=== PATIENT | female | born 1930 | race Hispanic/Latino ===

== ENCOUNTER 2018-08-26 11:53 | Emergency (ER) | payer MEDICARE, OTHER ==
[~2018-08-26] VITALS: Ht 152.4 cm; Wt 65.8 kg
--- OUTSIDE RECORDS SUMMARY | 2018-08-26 11:56 | XMS REPORT | Summary of Care ---
Author Organization Unknown Address Unknown Phone Unavailable Encounter HQ Adrianna_janusz(FLAKITO) [id number] Date(s): 08/12/14 - 08/12/[address] [facility] [address] [place] Discharge Disposition: Home Physician Attending: Keith Gómez MD Physician_Referring: Keith Gómez MD Reason for Visit UNK Vital Signs 1 2 3 Most recent to oldest [Reference Range]: 149.86 cm (08/09/14 9:19 AM) Height 98.0 DegF (08/09/14 9:22 AM) Temperature Oral [96.4-99.1 DegF] 131 mmHg (08/12/14 10:00 AM) 134 mmHg (08/12/14 9:45 AM) 128 mmHg (08/12/14 9:31 AM) Systolic Blood Pressure [90-140 mmHg] 57 mmHg *LOW* (08/12/14 10:00 AM) 60 mmHg (08/12/14 9:45 AM) 61 mmHg (08/12/14 9:31 AM) Diastolic Blood Pressure [60-90 mmHg] 15 BRMIN (08/12/14 10:00 AM) 19 BRMIN (08/12/14 9:45 AM) 15 BRMIN (08/12/14 9:31 AM) Respiratory Rate [14-20 BRMIN] 74 bpm (08/09/14 9:22 AM) Peripheral Pulse Rate [60-100 bpm] 76.818 kg (08/09/14 9:19 AM) Weight 34.21 m2 (08/09/14 9:19 AM) Body Mass Index Problem List Condition Effective Dates Status Health Status Informant Anxiety(Confirmed) Active Back pain(Confirmed) Resolved Back pain(Confirmed) Active Bronchitis(Confirmed Resolved ) Carpal tunnel Active syndrome(Confirmed) Chest Active pain(Confirmed) Depression(Confirmed Resolved ) Diabetes mellitus Resolved type 2(Confirmed) Hypertension(Confirm Resolved ed) Hypertension(Confirm Active ed) Allergies, Adverse Reactions, Alerts Substance Reaction Severity Status penicillins Active Medications acetaminophen 1,000 mg, Route: IVPB, Drug form: INJ, ONCE, Dosing Weight 76.818, kg, PRN Pain Score 1-3, Start date: 08/12/14 9:30:00, Duration: 1 doses or times, Stop date: Limited # of times Start Date: 08/12/14 Stop Date: 08/12/14 Status: Discontinued fentaNYL 25 microgram, Route: IVP, Q5Min, Dosing Weight 76.818, kg, PRN Pain Score 4-6, S tart date: 08/12/14 9:30:00, Duration: 4 doses or times, Stop date: Limited # of times Start Date: 08/12/14 Stop Date: 08/12/14 Status: Discontinued flumazenil 0.2 mg, Route: IVP, PRN, Dosing Weight 76.818, kg, PRN Benzodiazepine Reversal, Initial dose, Start date: 08/12/14 9:30:00, Duration: 30 day, Stop date: 4 8:29:00 Start Date: 08/12/14 Stop Date: 08/12/14 Status: Discontinued hydrochlorothiazide-losartan 12.5 mg-100 mg oral tablet 1 tab, PO, Daily, # 90 tab, 0 Refill(s) Start Date: 08/09/14 Status: Ordered hydromorphone 0.5 mg, Route: IVP, Q5Min, Dosing Weight 76.818, kg, PRN Pain Score 7-10, Start date: 08/12/14 9:30:00, Duration: 4 doses or times, Stop date: Limited # of time s Start Date: 08/12/14 Stop Date: 08/12/14 Status: Discontinued Lactated Ringers Injection IV 1000 mL 1,000 mL, Rate: 25 ml/hr, Infuse over: 40 hr, Route: IV, Dosing Weight 76.818 kg , Total Volume: 1,000, Start date: 08/12/14 7:15:00, Duration: 30 day, Stop date : 09/11/14 7:14:00 Start Date: 08/12/14 Stop Date: 08/12/14 Status: Discontinued meperidine 12.5 mg, Route: IVP, Q30Min, Dosing Weight 76.818, kg, PRN Other -See Comment, F or shivering, Start date: 08/12/14 9:30:00, Duration: 2 doses or times, Stop soni e: Limited # of times Start Date: 08/12/14 Stop Date: 08/12/14 Status: Discontinued naloxone 0.04 mg, Route: IVP, Q2MIN, Dosing Weight 76.818, kg, PRN Narcotic Reversal, Sta rt date: 08/12/14 9:30:00, Duration: 8 doses or times, Stop date: Limited # of t imes Start Date: 08/12/14 Stop Date: 08/12/14 Status: Discontinued [place] 5/325 oral tablet 1 tab, Route: PO, Drug Form: TAB, Dosing Weight 76.818, kg, Q4H, PRN Pain, Start date: 08/12/14 9:30:00, Duration: 30 day, Stop date: 09/11/14 9:29:00 Start Date: 08/12/14 Stop Date: 08/12/14 Status: Discontinued ondansetron 4 mg, Route: IVP, ONCE, Dosing Weight 76.818, kg, PRN Nausea & Vomiting, Start date: 08/12/14 9:30:00 Start Date: 08/12/14 Stop Date: 08/12/14 Status: Discontinued ProAir HFA 90 mcg/inh inhalation aerosol with adapter 2 puff, INHALATION, Q4H, for wheezing, # 9 gm, 0 Refill(s) Start Date: 08/09/14 Status: Ordered Proventil HFA 90 mcg/inh inhalation aerosol with adapter 1 puff, INHALATION, QID, for wheezing, # 25 gm, 0 Refill(s) Start Date: 08/09/14 Status: Ordered Results ELECTROLYTES Most recent to 1 oldest [Reference Range]: Sodium Lvl [135-145 138 mEq/L mEq/L] (08/09/14 10:00 AM) Potassium Lvl 3.9 mEq/L [3.5-5.1 mEq/L] (08/09/14 10:00 AM) Chloride Lvl [95-109 105 mEq/L mEq/L] (08/09/14 10:00 AM) CO2 [24-32 mEq/L] 28 mEq/L (08/09/14 10:00 AM) AGAP [10.0-20.0 8.9 mEq/L mEq/L] *LOW* (08/09/14 10:00 AM) Medications Administered During Your Visit No data available for this section Immunizations No data available for this section Procedures Procedure Type Body Site Date of Procedure Related Diagnosis Carpal tunnel 01/2014 decompression Social History Social History Type Response Alcohol Use: Never Smoking Status Never smoker, Type: Cigarettes, Exposure to Tobacco Smoke None, Cigarette Smoking Last 365 Days No, Reg Smoking Cessation Counseling No
--- OUTSIDE RECORDS SUMMARY | 2018-08-26 11:56 | XMS REPORT | Summary of Care ---
Author Author [facility] [place] Organization [facility] [place] Address Unknown Phone Unavailable Encounter HQ Larar_janusz(FIN) [id number] Date(s): 03/08/18 - 03/08/18 [facility] [place] [address] [place] [phone] Discharge Disposition: Home or Self Care Attending Physician: Rakesh Celestin DO Vital Signs No data available for this section Problem List Condition Effective Dates Status Health Status Informant Anxiety(Confirmed) Active Back pain(Confirmed) Resolved Back pain(Confirmed) Active Bronchitis(Confirmed Resolved ) Carpal tunnel Active syndrome(Confirmed) Chest Active pain(Confirmed) Depression(Confirmed Resolved ) Diabetes mellitus Resolved type 2(Confirmed) Hypertension(Confirm Resolved ed) Hypertension(Confirm Active ed) Allergies, Adverse Reactions, Alerts Substance Reaction Severity Status penicillins Active Medications No data available for this section Results No data available for this section Immunizations No data available for this section Procedures Procedure Date Related Diagnosis Body Site Status Carpal tunnel decompression 01/2014 Completed Cataract extraction1 Completed Colonoscopy Completed Hemorrhoidectomy Completed Hysterectomy Completed Operation Completed 1OU Social History Social History Type Response Alcohol Never Smoking Status Never smoker; Type: Cigarettes; Exposure to Tobacco Smoke None; Cigarette Smoking Last 365 Days No; Reg Smoking Cessation Counseling No entered on: 08/09/14 Assessment and Plan No data available for this section
--- OUTSIDE RECORDS SUMMARY | 2018-08-26 11:56 | XMS REPORT | Summary of Care ---
Author Organization Unknown Address Unknown Phone Unavailable Encounter Dates Location Diagnoses Discharge Providers Disposition 01/28/2014 [facility] 01/28/2014 [id number] [place], [place] [address] , [facility] Reason for Visit ICD 354.0 727.05 / CPT 45751 51309 . Vital Signs 1 2 3 Most recent to oldest [Reference Range]: 149.86 cm (01/26/2014 10:42:00 [facility]) Height 97.6 DegF (01/26/2014 10:26:00 [facility]) Temperature Oral [96.4-99.1 DegF] 114 mmHg (01/28/2014 09:15:00 [place]) 129 mmHg (01/28/2014 09:00:00 [facility]) 128 mmHg (01/28/2014 08:45:00 [place]) Systolic Blood Pressure [90-140 mmHg] 64 mmHg (01/28/2014 09:15:00 [place]) 45 mmHg *LOW* (01/28/2014 09:00:00 [place]) 60 mmHg (01/28/2014 08:45:00 [place]) Diastolic Blood Pressure [60-90 mmHg] 15 BRMIN (01/28/2014 09:15:00 [place]) 13 BRMIN *LOW* (01/28/2014 09:00:00 [place]) 16 BRMIN (01/28/2014 08:45:00 [place]) Respiratory Rate [14-20 BRMIN] 74 bpm (01/26/2014 10:26:00 [place]) Peripheral Pulse Rate [60-100 bpm] 71.364 kg (01/26/2014 10:42:00 [place]) Weight 31.78 m2 (01/26/2014 10:42:00 [place]) Body Mass Index Problem List Condition Effective Dates Status Health Status Informant Back pain(Confirmed) Resolved Bronchitis(Confirmed Resolved ) Depression(Confirmed Resolved ) Diabetes mellitus Resolved type 2(Confirmed) Hypertension(Confirm Resolved ed) Allergies, Adverse Reactions, Alerts Status Substance Reaction Severity Active penicillins Medications Medication Instructions Start Date Stop Date Status calcitonin NASAL, Daily, 0 Refill(s) 01/26/2014 Ordered Calcium 600 +D oral 1 tab, PO, Daily, 0 Refill(s) 01/26/2014 Ordered tablet fentaNYL 25 microgram, Route: IVP, Q5Min, 01/28/2014 01/28/2014 Discontinued Dosing Weight 71.364, kg, PRN Pain Score 4-6, Start date: 01/28/14 8:34:00, Duration: 4 doses or times, Stop date: Limited # of times Fish Oil 0 Refill(s) 01/26/2014 Ordered flumazenil 0.2 mg, Route: IVP, PRN, Dosing 01/28/2014 01/28/2014 Discontinued Weight 71.364, kg, PRN Benzodiazepine Reversal, Initial dose, Start date: 01/28/14 8:34:00, Duration: 30 day, Stop date: 02/27/14 8:33:00 hydromorphone 0.5 mg, Route: IVP, Q5Min, Dosing 01/28/2014 01/28/2014 Discontinued Weight 71.364, kg, PRN Pain Score 7-10, Start date: 01/28/14 8:34:00, Duration: 4 doses or times, Stop date: Limited # of times Hyzaar 12.5 mg=, PO, Daily, 0 Refill(s) 01/26/2014 Ordered Lactated Ringers 1,000 mL, Rate: 25 ml/hr, Infuse 01/28/2014 01/28/2014 Discontinued Injection IV 1000 mL over: 40 hr, Route: IV, Dosing Weight 71.364 kg, Total Volume: 1,000, Start date: 01/28/14 6:49:00, Duration: 30 day, Stop date: 02/27/14 6:48:00 lovastatin 40 mg 40 mg=1 tab, PO, Bedtime, # 30 tab, 01/26/2014 Ordered oral tablet 0 Refill(s) meperidine 12.5 mg, Route: IVP, Q30Min, Dosing 01/28/2014 01/28/2014 Discontinued Weight 71.364, kg, PRN Other -See Comment, For shivering, Start date: 01/28/14 8:34:00, Duration: 2 doses or times, Stop date: Limited # of times naloxone 0.04 mg, Route: IVP, Q2MIN, Dosing 01/28/2014 01/28/2014 Discontinued Weight 71.364, kg, PRN Narcotic Reversal, Start date: 01/28/14 8:34:00, Duration: 8 doses or times, Stop date: Limited # of times [place] 10/325 oral 1 tab, Route: PO, Drug Form: TAB, 01/28/2014 01/28/2014 Discontinued tablet Dosing Weight 71.364, kg, Q4H, PRN Pain, Start date: 01/28/14 8:34:00, Duration: 30 day, Stop date: 02/27/14 8:33:00 Ofirmev 1,000 mg, Route: IV, Drug form: 01/28/2014 01/28/2014 Discontinued INJ, ONCE, Dosing Weight 71.364, kg, PRN Pain, for > or=50 kg, Start date: 01/28/14 8:34:00 ondansetron 4 mg, Route: IVP, ONCE, Dosing 01/28/2014 01/28/2014 Discontinued Weight 71.364, kg, PRN Nausea & Vomiting, Start date: 01/28/14 8:34:00 oxyCODONE 5 mg, Route: PO, Drug form: TAB, 01/28/2014 01/28/2014 Discontinued Q4H, Dosing Weight 71.364, kg, PRN Pain Score 4-6, Start date: 01/28/14 8:34:00, Duration: 30 day, Stop date: 02/27/14 8:33:00 sertraline 50 mg 50 mg=1 tab, PO, Daily, # 30 tab, 0 01/26/2014 Ordered oral tablet Refill(s) Medications Administered During Your Visit No data available for this section Immunizations No data available for this section Procedures Procedure Type Body Site Date of Procedure Related Diagnosis Cataract extraction1 Colonoscopy Hemorrhoidectomy Hysterectomy Operation 1OU Social History Social History Type Response Smoking Status Use: Former smoker. Tobacco smoke exposure: None. Did the Patient Smoke Cigarettes Anytime During the Last 365 Days? No. Cessation Counseling Provided? No.
--- OUTSIDE RECORDS SUMMARY | 2018-08-26 11:56 | XMS REPORT | Continuity of Care Document ---
Author Author [facility] Interface Address Unknown Phone Unavailable Problems Problem Status Onset Date Classification Date Reported Comments Source SHOULDER Active 05/12/2018 [facility] RIGHT HIP/LEG Active 03/07/2016 [facility] RIGHT HIP/LEG AND SHOULDER Active 03/07/2016 [facility] UNK Active 07/30/2014 [facility] UNK Active 01/13/2014 [facility] ICD 354.0 727.05 / CPT 45078 [id number] Active 01/13/2014 [facility] Anxiety Active Problem 05/19/2018 [facility] [place] Back pain Resolved Problem 05/19/2018 [facility] [place] [place] Bronchitis Resolved Problem 05/19/2018 [facility] [place] Carpal tunnel syndrome Active Problem 05/19/2018 [facility] [place] Chest pain Active Problem 05/19/2018 [facility] [place] [place] Depression Resolved Problem 05/19/2018 [facility] [place] [place] Diabetes mellitus type 2 Resolved Problem 05/19/2018 [facility] [place] Hypertension Resolved Problem 05/19/2018 [facility] [place] Medications Medication Details Route Status Patient Instructions Ordering Provider Order Date Source Acetaminophen 325 MG / Hydrocodone Bitartrate 5 MG Oral Tablet [[place] 5/325] 1 tab, Route: PO, Drug Form: TAB, Dosing Weight 76.818, kg, Q4H, PRN Pain, Start date: 08/12/14 9:30:00, Duration: 30 day, Stop date: 09/11/14 9:29:00 Inactive 08/12/2014 [facility] Ondansetron 4 mg, Route: IVP, ONCE, Dosing Weight 76.818, kg, PRN Nausea & Vomiting, Start date: 08/12/14 9:30:00 Inactive 08/12/2014 [facility] Hydromorphone 0.5 mg, Route: IVP, Q5Min, Dosing Weight 76.818, kg, PRN Pain Score 7-10, Start date: 08/12/14 9:30:00, Duration: 4 doses or times, Stop date: Limited # of times Inactive 08/12/2014 [facility] Fentanyl 25 microgram, Route: IVP, Q5Min, Dosing Weight 76.818, kg, PRN Pain Score 4-6, Start date: 08/12/14 9:30:00, Duration: 4 doses or times, Stop date: Limited # of times Inactive 08/12/2014 [facility] Acetaminophen 1,000 mg, Route: IVPB, Drug form: INJ, ONCE, Dosing Weight 76.818, kg, PRN Pain Score 1-3, Start date: 08/12/14 9:30:00, Duration: 1 doses or times, Stop date: Limited # of times Inactive 08/12/2014 [facility] Naloxone 0.04 mg, Route: IVP, Q2MIN, Dosing Weight 76.818, kg, PRN Narcotic Reversal, Start date: 08/12/14 9:30:00, Duration: 8 doses or times, Stop date: Limited # of times Inactive 08/12/2014 [facility] Flumazenil 0.2 mg, Route: IVP, PRN, Dosing Weight 76.818, kg, PRN Benzodiazepine Reversal, Initial dose, Start date: 08/12/14 9:30:00, Duration: 30 day, Stop date: 09/11/14 8:29:00 Inactive 08/12/2014 [facility] Meperidine 12.5 mg, Route: IVP, Q30Min, Dosing Weight 76.818, kg, PRN Other -See Comment, For shivering, Start date: 08/12/14 9:30:00, Duration: 2 doses or times, Stop date: Limited # of times Inactive 08/12/2014 [facility] Calcium Chloride 0.0014 MEQ/ML / Potassium Chloride 0.004 MEQ/ML / Sodium Chloride 0.103 MEQ/ML / Sodium Lactate 0.028 MEQ/ML Injectable Solution 1,000 mL, Rate: 25 ml/hr, Infuse over: 40 hr, Route: IV, Dosing Weight 76.818 kg, Total Volume: 1,000, Start date: 08/12/14 7:15:00, Duration: 30 day, Stop date: 09/11/14 7:14:00 Inactive 08/12/2014 [facility] 200 ACTUAT Albuterol 0.09 MG/ACTUAT Metered Dose Inhaler [Proventil] 1 puff, INHALATION, QID, for wheezing, # 25 gm, 0 Refill(s) Active 08/09/2014 [facility] 200 ACTUAT Albuterol 0.09 MG/ACTUAT Metered Dose Inhaler [ProAir HFA] 2 puff, INHALATION, Q4H, for wheezing, # 9 gm, 0 Refill(s) Active 08/09/2014 [facility] Hydrochlorothiazide 12.5 MG / Losartan Potassium 100 MG Oral Tablet 1 tab, PO, Daily, # 90 tab, 0 Refill(s) Active 08/09/2014 [facility] Ofirmev 1,000 mg, Route: IV, Drug form: INJ, ONCE, Dosing Weight 71.364, kg, PRN Pain, for > or=50 kg, Start date: 01/28/14 8:34:00 Inactive 01/28/2014 [facility] Acetaminophen 325 MG / Hydrocodone Bitartrate 10 MG Oral Tablet [[place] 10/325] 1 tab, Route: PO, Drug Form: TAB, Dosing Weight 71.364, kg, Q4H, PRN Pain, Start date: 01/28/14 8:34:00, Duration: 30 day, Stop date: 02/27/14 8:33:00 Inactive 01/28/2014 [facility] Oxycodone 5 mg, Route: PO, Drug form: TAB, Q4H, Dosing Weight 71.364, kg, PRN Pain Score 4-6, Start date: 01/28/14 8:34:00, Duration: 30 day, Stop date: 02/27/14 8:33:00 Inactive 01/28/2014 [facility] Fentanyl 25 microgram, Route: IVP, Q5Min, Dosing Weight 71.364, kg, PRN Pain Score 4-6, Start date: 01/28/14 8:34:00, Duration: 4 doses or times, Stop date: Limited # of times Inactive 01/28/2014 [facility] Meperidine 12.5 mg, Route: IVP, Q30Min, Dosing Weight 71.364, kg, PRN Other -See Comment, For shivering, Start date: 01/28/14 8:34:00, Duration: 2 doses or times, Stop date: Limited # of times Inactive 01/28/2014 [facility] Flumazenil 0.2 mg, Route: IVP, PRN, Dosing Weight 71.364, kg, PRN Benzodiazepine Reversal, Initial dose, Start date: 01/28/14 8:34:00, Duration: 30 day, Stop date: 02/27/14 8:33:00 Inactive 01/28/2014 [facility] Naloxone 0.04 mg, Route: IVP, Q2MIN, Dosing Weight 71.364, kg, PRN Narcotic Reversal, Start date: 01/28/14 8:34:00, Duration: 8 doses or times, Stop date: Limited # of times Inactive 01/28/2014 [facility] Ondansetron 4 mg, Route: IVP, ONCE, Dosing Weight 71.364, kg, PRN Nausea & Vomiting, Start date: 01/28/14 8:34:00 Inactive 01/28/2014 [facility] Hydromorphone 0.5 mg, Route: IVP, Q5Min, Dosing Weight 71.364, kg, PRN Pain Score 7-10, Start date: 01/28/14 8:34:00, Duration: 4 doses or times, Stop date: Limited # of times Inactive 01/28/2014 [facility] Calcium Chloride 0.0014 MEQ/ML / Potassium Chloride 0.004 MEQ/ML / Sodium Chloride 0.103 MEQ/ML / Sodium Lactate 0.028 MEQ/ML Injectable Solution 1,000 mL, Rate: 25 ml/hr, Infuse over: 40 hr, Route: IV, Dosing Weight 71.364 kg, Total Volume: 1,000, Start date: 01/28/14 6:49:00, Duration: 30 day, Stop date: 02/27/14 6:48:00 Inactive 01/28/2014 [facility] Hyzaar 12.5 mg=, PO, Daily, 0 Refill(s) Active 01/26/2014 [facility] Calcitonin NASAL, Daily, 0 Refill(s) Active 01/26/2014 [facility] Fish Oil 0 Refill(s) Active 01/26/2014 [facility] Calcium 600 +D oral tablet 1 tab, PO, Daily, 0 Refill(s) Active 01/26/2014 [facility] sertraline 50 mg oral tablet 50 mg=1 tab, PO, Daily, # 30 tab, 0 Refill(s) Active 01/26/2014 [facility] lovastatin 40 mg oral tablet 40 mg=1 tab, PO, Bedtime, # 30 tab, 0 Refill(s) Active 01/26/2014 [facility] Allergies, Adverse Reactions, Alerts Substance Category Reaction Severity Reaction type Status Date Reported Comments Source penicillins Assertion Drug allergy Active [facility] Immunizations Immunization Date Given Site Status Last Updated Comments Source Results Order Name Results Value Reference Range Date Interpretation Comments Source Shoulder wo contrast MRI Shoulder wo contrast MRI EXAMINATION: MR left shoulder without contrast HISTORY: M19.012 Primary osteoarthritis, left shoulder - M19.012 Primary osteoarthritis, left shoulder; AGE: 87 years GENDER: Female COMPARISON: There are no radiographs available for review. TECHNIQUE: Multiplanar, multisequence magnetic resonance imaging of the left shoulder is performed with a local coil. Transverse, oblique coronal, and oblique sagittal images are obtained. FINDINGS: Biceps: The long head of the biceps tendon demonstrates severe tendinosis of the intra-articular biceps tendon without tear.. Labrum: There is a normal variant sub labral foramen. Mild intermediate T2 signal in the substance of the labrum in the posterior superior quadrant suggesting labral degeneration. Rotator cuff tendons: There is severe tendinosis of the supraspinatus tendon with a full-thickness, near complete tear of the supraspinatus tendon. A few, thin intact fibers are noted posteriorly. There is severe tendinosis of the infraspinatus tendon with moderate thinning of the anterior footplate. Mild subscapularis tendinosis without tear. Muscles: There is normal signal intensity and muscle bulk of the rotator cuff musculature. No isolated fatty atrophy of the rotator cuff musculature. Acromio-osseous outlet: There is a type 3 acromion without a subacromial spur. The coracoacromial and coracoclavicular ligaments are intact. Moderate osteoarthritis of the acromioclavicular joint. Bone: There are no acute fractures. There are no suspicious bone marrow replacing lesions. Cartilage: There is grade III chondromalacia in the glenohumeral joint with mild osteophyte formation along the inferior humeral head. Soft tissue: Small volume of fluidin the subacromial-subdeltoid bursa. Small glenohumeral joint effusion.The glenohumeral capsule is intact. The inferior glenohumeral ligament is unremarkable..The axilla and visualized portions of the hemithorax are unremarkable. IMPRESSION: 1. Full-thickness, near complete tear of the supraspinatus tendon with severe tendinosis and thinning of the intact posterior fibers. 2. Severe infraspinatus tendinosis with moderate thinning of the anterior footplate. No fluid signal defect identified in the infraspinatus tendon. Mild subscapularis tendinosis without tear. 3. Severe intra-articular biceps tendinosis without tear. 4. Mild osteoarthritis of the glenohumeral joint. 5. Type III acromion. Moderate osteoarthritis of the acromial clavicular joint. 6. Small glenohumeral joint effusion which decompresses into the subacromial/subdeltoid bursa. 03/08/2018 - - Read by: Angel Lutz MD Dictated Date/time: 03/10/18 07:40 Electronically Signed by: Angel Lutz MD 03/10/18 07:51 FINAL REPORT [facility] [place] ELECTROLYTES AGAP 8.9 meq/L 10.0 - 20.0 08/09/2014 [facility] ELECTROLYTES Chloride Lvl 105 meq/L 95 - 109 08/09/2014 [facility] ELECTROLYTES CO2 28 meq/L 24 - 32 08/09/2014 [facility] ELECTROLYTES Potassium Lvl 3.9 meq/L 3.5 - 5.1 08/09/2014 [facility] ELECTROLYTES Sodium Lvl 138 meq/L 135 - 145 08/09/2014 [facility] Vital Signs Vital Sign Value Date Comments Source Diastolic (mm Hg) 57 08/12/2014 [facility] Systolic (mm Hg) 131 08/12/2014 [facility] Respitory Rate 15 08/12/2014 [facility] Diastolic (mm Hg) 60 08/12/2014 [facility] Systolic (mm Hg) 134 08/12/2014 [facility] Respitory Rate 19 08/12/2014 [facility] Diastolic (mm Hg) 61 08/12/2014 [facility] Systolic (mm Hg) 128 08/12/2014 [facility] Respitory Rate 15 08/12/2014 [facility] Temperature Oral (F) 98.0 F 08/09/2014 [facility] Heart Rate 74 08/09/2014 [facility] Height 149.86 cm 08/09/2014 [facility] Weight 76.818 08/09/2014 [facility] BMI Calculated 34.21 08/09/2014 [facility] Respitory Rate 15 01/28/2014 [facility] Diastolic (mm Hg) 64 01/28/2014 [facility] Systolic (mm Hg) 114 01/28/2014 [facility] Diastolic (mm Hg) 45 01/28/2014 [facility] Systolic (mm Hg) 129 01/28/2014 [facility] Respitory Rate 13 01/28/2014 [facility] Systolic (mm Hg) 128 01/28/2014 [facility] Diastolic (mm Hg) 60 01/28/2014 [facility] Respitory Rate 16 01/28/2014 [facility] Height 149.86 cm 01/26/2014 [facility] BMI Calculated 31.78 01/26/2014 [facility] Weight 71.364 01/26/2014 [facility] Heart Rate 74 01/26/2014 [facility] Temperature Oral (F) 97.6 F 01/26/2014 [facility] Encounters Location Location Details Encounter Type Encounter Number Reason For Visit Attending Provider ADM Date DC Date Status Source [facility] OBS Day Surgery [id number] _[id number] Keith Gómez 01/28/2014 01/28/2014 [facility] OBS Day Surgery [id number] Keith Gómez 08/12/2014 08/12/[address] [facility] [place] [facility] [id number] Rakesh Celestin 03/08/2018 03/09/2018 [facility] [facility] [id number] Johnoletkarsten Celestin 03/12/2018 04/11/2018 [facility] [place] [facility] [id number] Rakesh Celestin 04/17/2018 05/17/2018 [facility] [place] Procedures Procedure Code Date Perfomer Comments Source Carpal tunnel decompression 99480754 01/02/2014 [facility] [place] Carpal tunnel decompression 38812713 01/02/2014 [facility] [place] Carpal tunnel decompression [id number] 01/02/2014 [facility] Cataract extraction<sup>1</sup> [id number] O[facility] [place] Colonoscopy [id number] [facility] [place] Hemorrhoidectomy [id number] [facility] Hysterectomy [id number] [facility] [place] Operation [id number] [facility] [place] Cataract extraction<sup>1</sup> [id number] OU [facility] [place] Colonoscopy [id number] [facility] [place] Hemorrhoidectomy [id number] [facility] [place] Hysterectomy [id number] [facility] [place] Operation [id number] [facility] [place] Cataract extraction<sup>1</sup> [id number] [facility] [id number] [facility] Hemorrhoidectomy [id number] [facility] Hysterectomy [id number] [facility] [id number] [facility]
--- OUTSIDE RECORDS SUMMARY | 2018-08-26 11:57 | XMS REPORT | Summary of Care ---
Author Author [facility] Address Unknown Phone Unavailable Encounter HQ Adrianna_janusz(FIN) [id number] Date(s): 04/17/18 - 05/16/18 [facility] Discharge Disposition: Home or Self Care Attending [...]
[2018-08-26] MEDS ORDERED: TRAMADOL HCL 50 MG TAB PO ONE (12:00)
--- NOTE | 2018-08-26 14:16 | Diagnostic Imaging Report ---
Exam: AP pelvis 2 views History: Pain Comparison: None. Findings: No acute fracture. Multilevel severe lumbar degenerative disc disease. Mild sacroiliac and hip degenerative arthrosis. Multiple pelvic phleboliths. Impression: No acute osseous abnormality Signed by: Dr. Eduardo Hernandez M.D. on 08/26/2018 2:13 PM
--- NOTE | 2018-08-26 14:19 | Diagnostic Imaging Report ---
Exam: Rib series History: Pain Comparison: None. Findings: No fracture or malalignment. No abnormal soft tissue calcification or soft tissue defect. Impression: No displaced rib fracture Signed by: Dr. Eduardo Hernandez M.D. on 08/26/2018 2:15 PM
[2018-08-26 15:21] VITALS: BP 123/60
== END 2018-08-26 15:22 | disposition home or self-care (01) ==
LOC: ER 11:53
DX: R07.89 Other chest pain (principal); S20.211A Contusion of right front wall of thorax, initial encounter; W01.0XXA Fall on same level from slipping, tripping and stumbling without subsequent striking against object, initial encounter; Y93.01 Activity, walking, marching and hiking; Y92.008 Other place in unspecified non-institutional (private) residence as the place of occurrence of the external cause; I10 Essential (primary) hypertension; F41.9 Anxiety disorder, unspecified
CPT/HCPCS: 71101; 72170; 99283